=== PATIENT | male | born 1960 | race Caucasian/White ===

== ENCOUNTER → 2020-11-08 09:18 | Outpatient (CLI) | payer OTHER, SELFPAY ==
[2020-11-08 15:59] LABS: COVID19 -Nasal RAPID Negative (Negative)
== END ==
PROVIDERS: Visit Provider Physician Assistant
DX: Z20.822 Contact with and (suspected) exposure to COVID-19 (principal)
CPT/HCPCS: 87635

== ENCOUNTER 2020-11-10 13:47 | Day surgery (SDC) | payer OTHER, SELFPAY ==
--- NOTE | 2020-11-10 | PATH_ITS ---
[facility] Accession Number: [id number] . 01 Material submitted: . PART A: duodenum - DUODENUM PART B: stomach - STOMACH PART C: sigmoid colon - SIGMOID COLON POLYP . 01 Clinical history: . B: R/O H.P . 02 Diagnosis: . A. Duodenum, Biopsy: Duodenal mucosa with mild active inflammation and foveolar metaplasia, consistent with peptic duodenitis. Negative for features of sprue, dysplasia or malignancy. . B. Stomach, Biopsy: Gastric antral mucosa with mild chronic inflammation. Negative for Helicobacter organisms by immunohistochemistry. Negative for intestinal metaplasia. Negative for dysplasia or malignancy. . C. Sigmoid Colon Polyp, Biopsy: Hyperplastic polyp. [facility] 11/16/2020 1507 Local . 02 Electronically signed: . Clemente Taylor MD, PhD, Pathologist NPI- [id number] . 01 Gross description: . Part A: DUODENUM: Received in formalin are 3 fragment(s) of salgado, soft tissue measuring 0.1 x 0.1 x 0.1 cm to 0.2 x 0.2 x 0.2 cm submitted entirely in 1 cassette(s) Part B: STOMACH: Received in formalin is 1 fragment(s) of salgado, soft tissue measuring 0.3 x 0.2 x 0.2 cm submitted entirely in 1 cassette(s) Part C: SIGMOID COLON POLYP: Received in formalin is 1 fragment(s) of salgado, soft tissue measuring 0.3 x 0.3 x 0.3 cm submitted entirely in 1 cassette(s) /RACH 11/12/2020 2312 Local . 02 Microscopic: . B. An immunohistochemical stain was performed to evaluate for Helicobacter organisms and is negative. The control stain showed appropriate reactivity. . * This test was developed and its performance characteristics determined by [facility]. It has not been cleared or approved by the [place]. Food and Drug Administration. The FDA has determined that such clearance or approval is not necessary. This test is used for clinical purposes. It should not be regarded as investigational or for research. . 02 Pathologist provided ICD-10: K29.80, K29.70, K63.5 . 02 CPT . 811109, 240350, 922185, [id number] Performed at: 01 [facility] [address] [place] [address] [id number] MD Angelo Mandujano MD Phone: [phone] Performed at: [facility] [id number] [place] [address] [id number] MD Lori Partida MD Phone: [phone]
[2020-11-10 14:10] VITALS: BP 137/87; PULSE 88; RESP 14; TEMP 36.6; O2SAT 98; BMI 32.5
[2020-11-10] MEDS: LACTATED RINGERS 1,000 ML 42 ML IV (14:20)
--- NOTE | 2020-11-10 15:00 | PM.HP.1 ---
History of Present Illness History of Present Illness Date Patient Seen: 11/10/20 Chief complaint: SDC Narrative: GE reflux and dysphagia with history of colon polyps Patient History Medical History (Updated 11/10/20 @ 14:01 by Mary Grace Juan RN) Chronic cough GERD (gastroesophageal reflux disease) THIEN on CPAP Prostate cancer Schatzki's ring Surgical History (Updated 11/10/20 @ 13:56 by Mary Grace Juan RN) S/P prostatectomy Family & Social History Social History: household members spouse Tobacco & Substance use: Smoking Status Never smoker alcohol intake frequency a few times a week Substance Use Type marijuana Meds Home Medications and Allergies Home Medications Medication Instructions Recorded Confirmed Type atorvastatin 20 mg PO DAILY 11/10/20 11/10/20 History ibuprofen 800 mg PO BID 11/10/20 11/10/20 History loratadine 10 mg PO DAILY 11/10/20 11/10/20 History Allergies Allergy/AdvReac Type Severity Reaction Status Date / Time No Known Drug Allergies Allergy Verified 11/10/20 13:54 Exam Vital Signs (past 8 hours): - 11/10/20 14:10 Temperature 97.9 F Pulse Rate 88 Respiratory Rate 14 Blood Pressure 137/87 Pulse Oximetry 98 Oxygen Delivery Method Room Air Narrative Exam Narrative: Oropharynx free of lesions Chest clear to auscultation percussion Cardiac exam reveals no S3 or murmur Assessment & Plan Assessment & Plan narrative: GE reflux and dysphagia and history of colon polyps need for EGD and colonoscopy. Risks, benefits, alternatives have been explained.
--- NOTE | 2020-11-10 15:01 | P.OP.ENDO_ITS ---
Operative Date/Time/Diagnoses Date of procedure: 11/10/20 Pre-op diagnosis: See indication and findings Procedure & Clinicians Study performed: EGD and colonoscopy Same procedure as scheduled: Yes Indications: Reflux and dysphagia with history of colon polyps Surgeon: Valentino Desouza Procedure Notes Procedure in detail: After informed consent was obtained the patient was placed in left lateral decubitus position. The video upper scope was placed through the oropharynx with the patient's help swelled into the esophagus. The esophagus stomach and duodenum were carefully examined. On withdrawal retroflexed view of the GE junction was performed. Scope was removed. The patient tolerated procedure well. The patient was then turned to the scope substituted for colonoscope. This was inserted in the rectum easily passed to the cecum. On slow withdrawal mucosa was carefully examined. Preparation was good. Blood loss none Complications none Sedation MAC with anesthesia Findings EGD 1. Benign [id number]-[id number] Schatzki's ring at the GE junction. No evidence of esophagitis no evidence Osborne's esophagus. On withdrawal this was dilated to 50 [place] Savary. 2. Scattered and striped erythema in the antrum biopsies taken to rule out Helicobacter 3. Nodular and erosive gastritis in the duodenal bulb. This was moderately severe. Biopsies were taken. Colonoscopy 1. 6 mm polyp in the sigmoid Jumbo biopsy removed completely 2. Extensive diverticulosis throughout the entire colon and very tortuous. Despite multiple positions and compression unable to pass the scope past the IC valve. Cecum not completely visualized. Ishmael should have a virtual colonoscopy to complete his workup. If negative follow-up can be in the 7-10 years pending pathology results. Margins also follow-up in the office/virtually discussed those procedures during.
[2020-11-10 15:40] VITALS: BP 134/94; PULSE 86; RESP 18; TEMP 36.2; O2SAT 95
[2020-11-10 15:45] VITALS: BP 133/94; PULSE 86; RESP 18; O2SAT 95
[2020-11-10 15:50] VITALS: BP 129/82; PULSE 79; RESP 18; O2SAT 95
[2020-11-10 15:55] VITALS: BP 135/94; PULSE 72; RESP 18; O2SAT 94
[2020-11-10 15:59] VITALS: BP 140/95; PULSE 69; RESP 18; TEMP 36.6; O2SAT 96
== END 2020-11-10 16:11 | disposition home or self-care (01) ==
PROVIDERS: Referring Provider Internal Medicine Gastroenterology; Visit Provider Internal Medicine Gastroenterology
PROC: 0DJ08ZZ Inspection of Upper Intestinal Tract, Via Natural or Artificial Opening Endoscopic (ICD-10-PCS; CPT 43235; principal; 2020-11-10 15:00)
PROC: 0DJD8ZZ Inspection of Lower Intestinal Tract, Via Natural or Artificial Opening Endoscopic (ICD-10-PCS; CPT 45378; 2020-11-10 15:00)
DX: Z12.11 Encounter for screening for malignant neoplasm of colon (principal); R13.10 Dysphagia, unspecified; K22.2 Esophageal obstruction; K21.9 Gastro-esophageal reflux disease without esophagitis; G47.33 Obstructive sleep apnea (adult) (pediatric); K57.30 Diverticulosis of large intestine without perforation or abscess without bleeding; K29.50 Unspecified chronic gastritis without bleeding; K63.5 Polyp of colon; K29.80 Duodenitis without bleeding; Z53.09 Procedure and treatment not carried out because of other contraindication
CPT/HCPCS: 45380; 43248; 43239